=== PATIENT | female | born 1935 | race Caucasian/White ===

== ENCOUNTER 2023-07-20 10:46 | Inpatient (IN) | payer MEDICARE, BC ==
[~2023-07-20] VITALS: Ht 167.6 cm; Wt 57.7 kg
[2023-07-20 11:14] LABS: BASOPHILS % (AUTO) 0.5 % (0-1); EOSINOPHILS % (AUTO) 0.3 % (0-6); HEMATOCRIT 34.5 % (35.0-45.0); HEMOGLOBIN 11.2 g/dl (12.0-16.0); LYMPHOCYTES # (AUTO) 1.2 X10'3 (1.1-4.8); LYMPHOCYTES % (AUTO) 16.7 % (21-51); MEAN CORPUSCULAR HEMOGLOBIN 27.3 PG (27.0-31.0); MEAN CORPUSCULAR HGB CONC 32.5 g/dL (33.0-36.5); MEAN CORPUSCULAR VOLUME 84.2 FL (78-98); MEAN PLATELET VOLUME 7.5 FL (7.4-10.4); MONOCYTES # (AUTO) 0.5 X10'3 (0-0.9); MONOCYTES % (AUTO) 6.6 % (2-12); NEUTROPHILS # (AUTO) 5.4 X10'3 (1.8-7.7); NEUTROPHILS % (AUTO) 75.9 % (42-75); PLATELET COUNT 256 X10'3 (140-440); RED BLOOD COUNT 4.09 X10'6 (4.20-5.60); WHITE BLOOD COUNT 7.1 X10'3 (4.5-11.0)
[2023-07-20 11:26] LABS: ALANINE AMINOTRANSFERASE 37 U/L (12-78); ALBUMIN 3.4 G/DL (3.4-5.0); ALBUMIN/GLOBULIN RATIO 0.9 (1.1-1.5); ALKALINE PHOSPHATASE 86 IU/L (46-116); ANION GAP 12 (8-16); ASPARTATE AMINO TRANSFERASE 26 U/L (10-37); BILIRUBIN,TOTAL 0.3 MG/DL (0.1-1.0); BLOOD UREA NITROGEN 55 MG/DL (7-18); BUN/CREATININE RATIO 26.3 (10.0-20.0); CALCIUM 8.8 MG/DL (8.5-10.1); CHLORIDE 105 MMOL/L (99-107); CREATININE 2.09 MG/DL (0.40-0.90); GLUCOSE 172 MG/DL (70-104); POTASSIUM 5.7 MMOL/L (3.5-5.1); SODIUM 139 MMOL/L (135-145); TOTAL CARBON DIOXIDE 22.3 MMOL/L (24-32); TOTAL PROTEIN 7.1 G/DL (6.4-8.2); eCRCL 17 ML/MIN; eGFR 22 ML/MIN
[2023-07-20 11:35] LABS: PRO BRAIN NATRIURETIC PEPTIDE 3288 PG/ML (0-450)
[2023-07-20 12:17] LABS: BILIRUBIN,URINE SMALL (Neg); CLARITY,URINE CLOUDY (Clear); COLOR,URINE YELLOW (Yellow); GLUCOSE, URINE NEGATIVE (Neg); KETONES,URINE 15 mg/dl (Neg); LEUKOCYTE ESTERASE ,URINE MODERATE (Neg); NITRITES, URINE NEGATIVE (Neg); OCCULT BLOOD,URINE NEGATIVE (Neg); PROTEIN,URINE TRACE mg/dl (Neg); UROBILINOGEN,URINE 0.2 E.U/dL (0.2-1.0)
[2023-07-20 12:20] LABS: UA COLLECTION TYPE CLN CATCH MIDSTREAM
[2023-07-20 12:25] LABS: BACTERIA,URINE 3+ /HPF (Neg); RBC,URINE 0-2 /HPF (0-2); WBC,URINE 20-30 /HPF (0-4)
[2023-07-20 12:26] LABS: MUCUS STRANDS MODERATE /LPF (Neg); SQUAMOUS EPITHELIAL CELL,UR MANY /LPF (FEW); TRANSITIONAL EPI CELLS,URINE FEW /HPF
[2023-07-20] MEDS ORDERED: normal saline 1000ml 1,000 ML IV ONE (18:15)
[2023-07-20] MEDS ORDERED: acetaminophen 325mg tablet PO PRN (21:10)
[2023-07-20] MEDS ORDERED: magnesium Cl slow-release 64mg tablet PO PRN (21:10)
[2023-07-20] MEDS ORDERED: magnesium 2GM in 50ml NS 50 ML IV PRN (21:10)
[2023-07-20] MEDS ORDERED: mag hydrox/Alum hydrox/simeth 30ml oral suspension PO PRN (21:10)
[2023-07-20] MEDS ORDERED: PERFLUTREN PROTEIN-A MICROSPHR (Optison) 0.22 MG/ML 3ML VIAL IV ONE (21:10)
[2023-07-20] MEDS ORDERED: potassium Cl 40MEQ/1/2NS 520ml 520 ML IV PRN (21:10)
[2023-07-20] MEDS ORDERED: potassium Cl 20 mEq SR tablet PO PRN ×2 (21:10)
[2023-07-20] MEDS ORDERED: ondansetron/PF 4mg/2ml inj IV PRN (21:10)
[2023-07-20] MEDS ORDERED: magnesium 4gm in 100ml NS 100 ML IV PRN (21:10)
[2023-07-20] MEDS ORDERED: magnesium hydroxide 30ml (MOM) UD suspension PO PRN (21:10)
[2023-07-20] MEDS ORDERED: amLODIPine 5mg tablet PO ONE (21:15)
[2023-07-20] MEDS: normal saline 1000ml 1,000 ML IV SCH (21:37)
[2023-07-20 23:30] VITALS: BP 186/99; PULSE 60; RESP 18; TEMP 97.4; O2SAT 98
[2023-07-21] VITALS: RESP 18; O2SAT 98
[2023-07-21] MEDS ORDERED: NAPR-56 PO (00:33)
[2023-07-21] MEDS ORDERED: AMLO10TA48 PO (00:33)
[2023-07-21] MEDS ORDERED: LEVO150T PO (00:33)
[2023-07-21] MEDS ORDERED: BETA1TAB19 PO (00:33)
[2023-07-21] MEDS ORDERED: LISI40TA13 PO (00:33)
[2023-07-21] MEDS ORDERED: amLODIPine 5mg tablet PO ONE (02:10)
[2023-07-21 06:00] VITALS: BP 128/76; PULSE 55; RESP 17; TEMP 97.3; O2SAT 95
[2023-07-21] MEDS ORDERED: levoTHYROXINE 75mcg tablet PO SCH (07:00)
[2023-07-21 07:44] LABS: BASOPHILS % (AUTO) 0.6 % (0-1); EOSINOPHILS # (AUTO) 0.2 X10'3 (0-0.9); EOSINOPHILS % (AUTO) 4.9 % (0-6); HEMATOCRIT 33.3 % (35.0-45.0); HEMOGLOBIN 10.9 g/dl (12.0-16.0); LYMPHOCYTES % (AUTO) 22.8 % (21-51); MEAN CORPUSCULAR HEMOGLOBIN 27.4 PG (27.0-31.0); MEAN CORPUSCULAR HGB CONC 32.6 g/dL (33.0-36.5); MEAN PLATELET VOLUME 7.2 FL (7.4-10.4); MONOCYTES # (AUTO) 0.6 X10'3 (0-0.9); MONOCYTES % (AUTO) 12.9 % (2-12); NEUTROPHILS # (AUTO) 2.7 X10'3 (1.8-7.7); NEUTROPHILS % (AUTO) 58.8 % (42-75); PLATELET COUNT 219 X10'3 (140-440); RED BLOOD COUNT 3.97 X10'6 (4.20-5.60); RED CELL DISTRIBUTION WIDTH 15.6 % (11.5-14.5); WHITE BLOOD COUNT 4.6 X10'3 (4.5-11.0)
[2023-07-21] MEDS ORDERED: amLODIPine 5mg tablet PO SCH (08:00)
[2023-07-21] MEDS ORDERED: heparin, porcine 5000 units/ml vial SQ SCH (08:00)
[2023-07-21] MEDS ORDERED: K and/or MAG REPLACEMENT MC SCH (08:00)
[2023-07-21] MEDS ORDERED: docusate sod 100mg capsule PO SCH (08:00)
[2023-07-21 08:06] LABS: ALANINE AMINOTRANSFERASE 23 U/L (12-78); ALBUMIN 2.7 G/DL (3.4-5.0); ALBUMIN/GLOBULIN RATIO 0.8 (1.1-1.5); ALKALINE PHOSPHATASE 76 IU/L (46-116); ANION GAP 7 (8-16); ASPARTATE AMINO TRANSFERASE 22 U/L (10-37); BILIRUBIN,TOTAL 0.3 MG/DL (0.1-1.0); BLOOD UREA NITROGEN 39 MG/DL (7-18); BUN/CREATININE RATIO 35.8 (10.0-20.0); CALCIUM 8.7 MG/DL (8.5-10.1); CHLORIDE 111 MMOL/L (99-107); CREATININE 1.09 MG/DL (0.40-0.90); GLUCOSE 86 MG/DL (70-104); POTASSIUM 5.2 MMOL/L (3.5-5.1); SODIUM 143 MMOL/L (135-145); TOTAL CARBON DIOXIDE 24.8 MMOL/L (24-32); TOTAL PROTEIN 6.2 G/DL (6.4-8.2); eCRCL 33 ML/MIN; eGFR 47 ML/MIN
[2023-07-21 08:17] VITALS: BP_SYST 130; PULSE 55
[2023-07-21] MEDS: normal saline 1000ml 1,000 ML IV SCH (09:03)
[2023-07-21] MEDS ORDERED: FURO-150 PO (12:55)
== END 2023-07-21 14:20 | disposition home or self-care (01) | DRG 682 ==
LOC: ER 10:47 → ED HOLD 21:10 → ORTHO 4S 23:05
PROVIDERS: ADMIT Internal Medicine; ATTEND Internal Medicine
DX: N17.0 Acute kidney failure with tubular necrosis (principal); I21.A1 Myocardial infarction type 2; E87.5 Hyperkalemia; E86.9 Volume depletion, unspecified; I10 Essential (primary) hypertension; I12.9 Hypertensive chronic kidney disease with stage 1 through stage 4 chronic kidney disease, or unspecified chronic kidney disease; N18.30 Chronic kidney disease, stage 3 unspecified; D64.9 Anemia, unspecified; G31.89 Other specified degenerative diseases of nervous system; M54.89 Other dorsalgia; R82.71 Bacteriuria; Z90.49 Acquired absence of other specified parts of digestive tract; Z79.899 Other long term (current) drug therapy; R19.7 Diarrhea, unspecified
CPT/HCPCS: 36415; 71045; 80053; 81001; 83735; 83880; 84484; 85025; 87081; 93005; 99285; A6258; G0378; J7030